=== PATIENT | male | born 1955 | race Caucasian/White ===

== ENCOUNTER 2020-05-06 07:02 | Emergency (ER) | payer BC, OTHER ==
--- OUTSIDE RECORDS SUMMARY | 2020-05-06 07:05 | XMS REPORT | Summary of Care ---
:1955 Author Organization [facility] Address [address] [place] [address] Care Team Providers Name Role Phone Siver Primary Care Provider Reason for Visit Reason Comments LAB WORK Encounter Details Date Type Department Care Team Description 02/11/2020 Bulk Loader Visit [facility] Abel Lui MD [address] [place] [address] Essential hypertension; Professional Office 2, [facility] Lab Diastolic dysfunction; Building Phlebotomy Abnormal EKG; Lab Aortic dilatation Professional Office Building [address] [facility] , [address] [place] [address] Allergies Active Allergy Reactions Severity Noted Date Comments Nsaids (Non-Steroidal Unknown - See comments 7 Anti-Inflammatory Drug) documented as of this encounter (statuses as of 02/11/2020) Medications Medication Sig Dispensed Refills Start Date End Date Status METOPROLOL SUCCINATE XL TAKE ONE TABLET 60 tablet 0 01/31/2020 Active 25 mg 24 hr BY MOUTH TWICE A tabletIndications: DAY Essential hypertension losartan 50 mg tablet Take 1 tablet by 30 tablet 0 02/07/2020 Active mouth 2 (two) times daily. documented as of this encounter (statuses as of 02/11/2020) Active Problems Problem Noted Date Type 2 diabetes mellitus without complication, without long-term current 08/02/2017 use of insulin Elevated LFTs 01/31/2017 Uncontrolled hypertension 01/30/2017 Ascending aortic aneurysm 01/30/2017 Abnormal EKG 01/30/2017 Morbid obesity with BMI of 40.0-44.9, adult 01/30/2017 Snoring 01/30/2017 documented as of this encounter (statuses as of 02/11/2020) Immunizations Name Administration Dates Next Due Td 10/16/2018 documented as of this encounter Social History Tobacco Use Types Packs/Day Years Used Date Former Smoker Cigarettes 1.5 Quit: 01/30/19 91 Smokeless Tobacco: Former User Snuff Alcohol Use Drinks/Week oz/Week Comments No Sex Assigned at Date Recorded Not on file COVID-19 Exposure Response Date Recorded In the last month, have you been in contact with No / Unsure 02/11/2020 9:55 AM SALES [employer]ISING [employer]IST someone who was confirmed or suspected to have Coronavirus / COVID-19? documented as of this encounter Last Filed Vital Signs Not on filedocumented in this encounter Nursing Notes Iris Maria - 02/11/2020 11:00 AM CST Venipuncture collection performed by clean technique on the left anticubitus. Total of 1 attempts were made. Slight pressure and a bandage/dressing were applied to the site(s). The patient experienced no complications. The following specimens were processed according to instructions and sent to [facility] laboratories per lab order on today: LT BLUE SST 1 RED LAV 1 PPT DK GREEN (LiHep) DK GREEN (SodH) ROBERTS DK BLUE (K2) DK BLUE (S) ACD Blood Culture NIPT/NTD S MERCHANDISING SPECIALIST documented in this encounter Plan of Treatment Date Type Specialty Care Team Description 02/11/2021 Office Visit Cardiology Abel Lui MD [address] [place] [phone] Health Maintenance Due Date Last Done Comments EYE EXAM 1966 URINE MICROALBUMIN 1966 FOOT EXAM 1974 DTaP,Tdap,and Td Vaccines (1 - 09/20/1975 10/16/2018 Tdap) COLON CANCER SCREENING ANNUAL 2006 FIT/FOBT COLON CANCER SCREENING FIT DNA 2006 EVERY 3 YEARS COLON CANCER SCREENING 2006 SIGMOIDOSCOPY EVERY 5 YEARS COLONOSCOPY 2006 Colorectal Cancer Screening 2006 Zoster Recombinant Vaccine 2006 (SHINGRIX) (1 of 2) HgA1C 02/01/2018 08/02/2017 CREATININE (SERUM) 08/02/2018 08/02/2017, 01/30/2017 LDL-C 08/02/2018 08/02/2017 INFLUENZA VACCINE (#1) 2019 Depression Screening 02/10/2021 02/11/2020 HEPATITIS C (HCV) SCREEN Completed 08/02/2017 PNEUMOCOCCAL 0-64 YEARS Aged Out No longe r eligible based COMBINED SERIES on patient's age to complete [facility] to [facility] documented as of this encounter Results Not on filedocumented in this encounter Visit Diagnoses Diagnosis Essential hypertension Unspecified essential hypertension Diastolic dysfunction Heart disease, unspecified Abnormal EKG Nonspecific abnormal electrocardiogram ( ECG) (EKG) Aortic dilatation Aortic ectasia, unspecified site documented in this encounter Insurance Payer Benefit Plan Subscriber ID Effective Dates Phone Address Type / Group [facility] [id number] 2016[address] [phone] [address] P[place] - OUT OF t 7 [id number] [place] [address] documented as of this encounter
--- OUTSIDE RECORDS SUMMARY | 2020-05-06 07:05 | XMS REPORT | Summary of Care ---
:1955 Author Organization [facility] Address [address] [place] [address] Care Team Providers Name Role Phone Siver Primary Care Provider Reason for Referral (Routine) Status Reason Specialty Diagnoses / Procedures Referred By Rex kovacs Referred To Contact Closed Cardiology Diagnoses Essential hypertension Diastolic dysfunction Abnormal EKG Aortic dilatation LuiAbel wright Procedures ECHO ROUTINE W/DOPPLER COLOR Preferred Location: [facility] MD Nimesh [address] [place] [address] Phone: Reason for Visit Reason Comments Follow-up Annual Ekg Done today in Office Encounter Details Date Type Department Care Team Description 02/11/2020 Office Visit [facility] Lui, Sendil Essential hyp ertension (Primary Dx); Cardiology- Vin Beavers MD Abnormal [facility] [address] Aortic dilatation; Drive, [address] Metabolic syndrome; [place], [place] Class 3 severe obesity with body mass index (BMI) of 40.0 to 44.9 in adult, unspecified obesity type, unspecified whether serious comorbidity present [id number] Allergies Active Allergy Reactions Severity Noted Date Comments Nsaids (Non-Steroidal Unknown - See comments 7 Anti-Inflammatory Drug) documented as of this encounter (statuses as of 02/12/2020) Medications Medication Sig Dispensed Refills Start Date End Date Status losartan 50 mg Take 1 180 tablet 3 02/12/2020 Act carol tabletIndications: tablet by 1 Essential mouth 2 hypertension, (two) times Abnormal EKG, daily for 90 Aortic dilatation days. metoprolol Take 1 180 tablet 3 02/12/2020 Active succinate XL 25 mg tablet by 1 24 hr mouth 2 tabletIndications: (two) times Essential daily for 90 hypertension, days. Abnormal EKG, Aortic dilatation losartan 50 mg Take 1 180 tablet 3 03/09/2018 Dis continued tablet tablet by 0 (Duplicate ) mouth 2 (two) times daily. METOPROLOL TAKE ONE 60 tablet 0 01/31/2020 Disconti nued SUCCINATE XL 25 mg TABLET BY 0 ( Reorder) 24 hr MOUTH TWICE tabletIndications: A DAY Essential hypertension losartan 50 mg Take 1 30 tablet 0 02/07/2020 Disc ontinued tablet tablet by 0 (Reorder) mouth 2 (two) times daily. 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 documented as of this encounter Last Filed Vital Signs Vital Sign Reading Time Taken Comments Blood Pressure 145/96 02/11/2020 10:20 AM PRE [employer] TEACH[employer] Pulse 67 02/11/2020 10:14 AM PRE [employer] TE[employer] Temperature - - Respiratory Rate 19 02/11/2020 10:14 AM PRE [employer]ER[employer] TEACHER Oxygen Saturation 94% 02/11/2020 10:14 AM PRE [employer]ERG[employer] TEACHER Inhaled Oxygen Concentration - - Weight 145.8 kg (321 lb 6.4 oz) 02/11/2020 10:14 AM PRE [employer]ER[employer] TEACH[employer] Height 182.9 cm (6') 02/11/2020 10:14 AM PRE [employer]ER[employer] TEACHER Body Mass Index 43.59 02/11/2020 10:14 AM PRE [employer]ERG[employer] TEACHER documented in this encounter Progress Notes Abel Lui MD - 02/11/2020 10:00 AM CST [facility] Cardiology Consult Note Patient: Zane Garcia Date of : 1955 CHIEF COMPLAINT: Chief Complaint Patient presents with Follow-up Annual Ekg Done today in Office History of Present Illness: Zane Garcia is a 62 year old male Presented to the office to Follow-up care for the Essential hypertension/abnormal EKG. History from patient himself. Since the last office visit, No new cardiac complaints noted. Concerned coming to due to his currently undergoing chemo. Not active since the COVID. ALLEN NYHA class II stable. Feeling well on the whole. No new cardiac symptoms noted. No chest pain at rest. No PND or orthopnea. No pedal edema. No exertional palpitations or palpitations at rest. No syncopal attacks. Prior cardiac history:- History dates back to a few years ago when he was started to notice elevated blood pressure. He was investigated. He states that he underwent 2 coronary angiogram in the last angiogram was done in around in early part of . He was told he has not obstructive CAD. He was also since then had a stress test which was reported to be normal. Recently in 2014 underwent last CAT scan which shows aortic aneurysm of 3.8 cm. Prior to that in 2010 he was told that he had around 4.2 cm aneurysm. Since moving to [place] he has been off medications. He last few days he has been noticing that he is having dyspnea on exertion NYHA class II and rechecked his blood pressure has been consistently elevated. He has gained at least 15-20 pounds since the move from [place]. Previous Cardiac Studies: IMAGING - I personally reviewed, pertinent results as below: EKG was reviewed as well as a sinus rhythm with left axis deviation. Nonspecific ST-T changes noted. Echo shows evidence of hypertensive heart disease CT chest shows presence of pulmonary nodules along with mild aortic root enlargement less than 4 Centimeters ECG 02/11/2020 SR with narrow QRS complex. T wave inversion in lateral leads similar to prior ECG 02/2019 PAST MEDICAL HISTORY Past Medical History: Diagnosis Date Abnormal EKG pt reports abnormal t wave. Ascending aortic aneurysm Hypertension Palpitations Tinnitus Type 2 diabetes mellitus without complication, without long-term current use of insulin 08/02/2017 Past Surgical History: Procedure Laterality Date FRACTURE SURGERY R clavicle fx LEFT HEART CATH Family History Problem Relation Age of Onset Afib (atrial fibrillation) Mother Cancer Father Hypertension Father Stroke Father SOCIAL HISTORY Social History Socioeconomic History Marital status: Spouse name: Not on file Number of children: Not on file Years of education: Not on file Highest education level: Not on file Occupational History Not on file Social Needs Financial resource strain: Not on file Food insecurity Worry: Not on file Inability: Not on file Transportation needs Medical: Not on file Non-medical: Not on file Tobacco Use Smoking status: Former Smoker Packs/day: 1.50 Types: Cigarettes Quit date: 01/30/1991 Years since quittin.0 Smokeless tobacco: Former User Types: Snuff Substance and Sexual Activity Alcohol use: No Drug use: No Sexual activity: Not on file Lifestyle Physical activity Days per week: Not on file Minutes per session: Not on file Stress: Not on file Relationships Social connections Talks on phone: Not on file Gets together: Not on file Attends bahai service: Not on file Active member of club or organization: Not on file Attends meetings of clubs or organizations: Not on file Relationship status: Not on file Intimate partner violence Fear of current or ex partner: Not on file Emotionally abused: Not on file Physically abused: Not on file Forced sexual activity: Not on file Other Topics Concern Not on file Social History Narrative Lives at home with and 2 daughters ALLERGIES Allergies Allergen Reactions Nsaids (Non-Steroidal Anti-Inflammatory Drug) Unknown - See comments MEDICATIONS Patient's Medications START taking these medications No medications on file CONTINUE taking these medications which have NOT CHANGED LOSARTAN 50 MG TABLET Take 1 tablet by mouth 2 (two) times daily. METOPROLOL SUCCINATE XL 25 MG 24 HR TABLET TAKE ONE TABLET BY MOUTH TWICE A DAY START taking Modified Medications as Prescribed No medications on file STOP taking these medications LOSARTAN 50 MG TABLET Take 1 tablet by mouth 2 (two) times daily. There are no exam notes on file for this visit. I have reviewed the nursing notes obtained by my nurse and concur as detailed above. REVIEW OF SYSTEMS: Comprehensive 10-system review was conducted and were negative except for what's noted in the HPI. The following systems were reviewed: Constitutional, cardiovascular, respiratory, gastrointestinal, genitourinary, musculoskeletal, neurologic, psychiatric, endocrinological, and hematological. PHYSICAL EXAMINATION: Vitals: 02/11/20 1014 02/11/20 1020 BP: (!) 145/90 (!) 145/96 BP Location: Left arm Patient Position: Sitting BP CUFF SIZE: Adult Large Pulse: 67 Resp: 19 SpO2: 94% Weight: 321 lb 6.4 oz (145.8 kg) Height: 6' (1.829 m) General: no apparent distress HEENT: normocephalic atraumatic Neck: supple, no lymphadenopathy, no bruits, no JVD Lungs: clear to auscultation bilaterally. No wheezes or rhonchi. No increased work of breathing. Cardio: Regular rate and rhythm, S1&S2 normal, no murmurs, rubs or gallops Abdomen: soft; non-tender; non-distended; normoactive bowel sounds. : not examined Rectal: not examined Extremities: no clubbing, cyanosis, or edema. Skin: no rashes, no visible lesions. Neuro: no gross focal deficits LABS - Reviewed pertinent labs as below: CBC BMP PT/INR WBC (10*3/L) Date Value 08/02/2017 7.61 NA (mmol/L) Date Value 08/02/2017 141 No results found for: PT PLT (10*3/L) Date Value 08/02/2017 207 K (mmol/L) Date Value 08/02/2017 4.5 No results found for: PTINR HGB (g/dL) Date Value 08/02/2017 14.4 BUN (mg/dL) Date Value 08/02/2017 13 HCT (%) Date Value 08/02/2017 43.8 CREATININE (mg/dL) Date Value 08/02/2017 0.80 LIPID PROFILE GLUCOSE (mg/dL) Date Value 08/02/2017 128 (H) CHOL (mg/dL) Date Value 08/02/2017 157 TSH LDL CHOL (mg/dL) Date Value 08/02/2017 69 TSH (mIU/L) Date Value 08/02/2017 1.65 CARDIAC ENZYMES HDL (mg/dL) Date Value 08/02/2017 37 (L) No results found for: CK TRIG (mg/dL) Date Value 08/02/2017 256 (H) LFTs No results found for: CKMB AST(SGOT) (U/L) Date Value 08/02/2017 32 No results found for: TROPNI ALT(SGPT) (U/L) Date Value 08/02/2017 57 (H) No results found for: BNP LDL CHOL (mg/dL) Date Value 08/02/2017 69 There are no current results on file for these tests and/or test for 1 year. There are no current results on file for these tests and/or test for 1 year. ASSESSMENT/PLAN 1. Essential hypertension ECHO ROUTINE W/DOPPLER COLOR Preferred Location: [facility] EKG-12 LEAD ROUTINE COMP. METABOLIC PANEL (73107) LIPID PANEL (58095)(TOTAL CHOLESTEROL, TRIGLYCERIDES, HDL) N-TERMINAL PRO-BNP GLYCOSYLATED HEMOGLOBIN (A1C) losartan 50 mg tablet metoprolol succinate XL 25 mg 24 hr tablet 2. Abnormal EKG ECHO ROUTINE W/DOPPLER COLOR Preferred Location: [facility] EKG-12 LEAD ROUTINE COMP. METABOLIC PANEL (70920) LIPID PANEL (12744)(TOTAL CHOLESTEROL, TRIGLYCERIDES, HDL) N-TERMINAL PRO-BNP GLYCOSYLATED HEMOGLOBIN (A1C) losartan 50 mg tablet metoprolol succinate XL 25 mg 24 hr tablet 3. Aortic dilatation ECHO ROUTINE W/DOPPLER COLOR Preferred Location: [facility] EKG-12 LEAD ROUTINE COMP. METABOLIC PANEL (52435) LIPID PANEL (28877)(TOTAL CHOLESTEROL, TRIGLYCERIDES, HDL) N-TERMINAL PRO-BNP GLYCOSYLATED HEMOGLOBIN (A1C) losartan 50 mg tablet metoprolol succinate XL 25 mg 24 hr tablet 4. Metabolic syndrome 5. Class 3 severe obesity with body mass index (BMI) of 40.0 to 44.9 in adult, unspecified obesity type, unspecified whether serious comorbidity present Clinically stable from cardiac stand point. No new cardiac complaints elicited. Recommend to exercise and if any exerterional symptoms of chest pain or ALLEN noted, then adviced to call us. HTN: Elevated in the office but reports wasn't taking meds since he ran out until recently. On Toprol XL 25 mg BiD and Losartan 50 mg BiD. Labs today since no labs in 2 yrs. ECG done today was reviewed with him. Copy given. Echo prior to next OV. Home BP log recommended. Cross check his BP machine. Appropriate ways to check home BP discussed. Goals BP < 130/80 stressed. Explained if BP > 130/80, adviced to send us the log. Lifestyle modifications stressed. Aortic root dilatation: Reviewed CT chest report from MD Tavares. No mention of dilatation. Echo prior to next OV. Elevated A1c: Labs today. Explained if still elevated, then will need to see PCP Eun Fierro for further assessment and management. Dyslipidemia: Recommended LDL << 70 (mild calcification noted in CT). Obese: Recommended lifestyle modification/risk factor modification/weight reduction diet/adequate exercises. Body mass index is 43.59 kg/m. Follow up in 12 months. Scripts sent. Recommended goal BP < 130/80 consistently, LDL << 70 (mild calcification noted in CT), HbA1c < 6.5. Orders Placed This Encounter Procedures COMP. METABOLIC PANEL (55959) LIPID PANEL (06256)(TOTAL CHOLESTEROL, TRIGLYCERIDES, HDL) N-TERMINAL PRO-BNP GLYCOSYLATED HEMOGLOBIN (A1C) ECHO ROUTINE W/DOPPLER COLOR Preferred Location: [facility] Requested Prescriptions Signed Prescriptions Disp Refills losartan 50 mg tablet 180 tablet 3 Sig: Take 1 tablet by mouth 2 (two) times daily for 90 days. metoprolol succinate XL 25 mg 24 hr tablet 180 tablet 3 Sig: Take 1 tablet by mouth 2 (two) times daily for 90 days. Patient's diease process and its evaluation and treatment were discussed. We discussed each of for cardio vascular-related problems and discussed long-term goals and expectations for the each problem.I reviewed each of the cardiac medications in detail. Reviewed the medication with patient in detail recommended to continue taking the current medications without further changes other than changes mentioned above. Recommended, explained and stressed the importance of healthy eating habits and exercises and lifestyle modifications Follow up as planned is predicated on symptoms stability and/or acceptable test results. Patient is urged to call in sooner should problems arise or if there is no improvement in cardiac symptoms. ER warning signs and symptoms explained and patient verbalized understanding. My diagnostic impression and treatment plans were discussed at length with the patient. All side effects as well as drug-drug interactions and risks discussed at length. Ample opportunity was offered and encouraged to ask questions during this visit and patient appreciated the answers given by me andverbzalised statisfcation in the answers given. We reviewed the [place] [employer] recommendations for reduction of overall cardio vascular risk. The importance of monitoring the blood pressure carefully both at home on regular basis along with other physicians appointment was stressed in detail. In addition we discussed target LDL levels for optimal risk reduction. It was advised that to daily physical activity be performed with 30 minutes of sustained exercise for both cardio vascular fitness and improvement for generalized medical health and well-being. Thank you for allowing us to participate in the care of Zane Garcia. If you have any questions or concerns please feel free to call our office at [phone]. I would be happy to be of further assistance for Zane Garcia wellbeing. David Lui MD Home Extension Agent, Division of Cardiology [facility] [employer]GARTEN TEACHER documented in this encounter Plan of Treatment Date Type Specialty Care Team Description 02/11/2021 Office Visit Cardiology Abel Lui MD [address] [place] [address] [phone] Name Type Priority Associated Diagnoses Order S chedule EKG-12 LEAD ROUTINE HEART STATION Routine Essential 1 Occur rences starting hypertension 02/11/2020 until Abnormal EKG 02/11/2021 Aortic dilatation Health Maintenance Due Date Last Done Comments EYE EXAM 1966 URINE MICROALBUMIN 1966 FOOT EXAM 1974 DTaP,Tdap,and Td Vaccines (1 - 09/20/1975 10/16/2018 Tdap) COLON CANCER SCREENING ANNUAL 2006 FIT/FOBT COLON CANCER SCREENING FIT DNA 2006 EVERY 3 YEARS COLON CANCER SCREENING 2006 SIGMOIDOSCOPY EVERY 5 YEARS COLONOSCOPY 2006 Colorectal Cancer Screening 2006 Zoster Recombinant Vaccine 2006 (SHINGRIX) (1 of 2) INFLUENZA VACCINE (#1) 2019 HgA1C 08/10/2020 02/11/2020, 08/02/2017 CREATININE (SERUM) 02/10/2021 02/11/2020, 08/02/2017, 01/30/2017 Depression Screening 02/10/2021 02/11/2020 LDL-C 02/10/2021 02/11/2020, 08/02/2017 HEPATITIS C (HCV) SCREEN Completed 08/02/2017 PNEUMOCOCCAL 0-64 YEARS Aged Out No longe r eligible based COMBINED SERIES on patient's age to complete this to pic documented as of this encounter Results N-TERMINAL PRO-BNP (02/11/2020 11:43 AM PRE [employer]ERGART[employer] TEACHER) Pathologist Sig nature NT-proBNP 59 <=125 pg/mL [facility] Specimen Blood Narrative Performed At Biotin has been reported to cause a negative [facility] bias, interpret results relative to patient's use of biotin. Performing Organization Address City/[facility] Phone Number [facility] CLIA: [id number] [place] [address] LABORATORY [address] [facility] LIPID PANEL (38588)(TOTAL CHOLESTEROL, TRIGLYCERIDES, HDL) (02/11/2020 11:43 AM PRE KINDERGARTEN TEACHER) Pathologist Sig nature CHOL 166 120 - 200 mg/dL [facility] HDL 32 (L) >40 mg/dL [facility] HDLC RATIO 5.2 (H) <=5.0 [facility] TRIG 174 (H) 30 - 170 mg/dL [facility] LDL CHOL 99 <=160 mg/dL [facility] VLDL 35 5 - 60 mg/dL [facility] Specimen Blood Performing Organization Address City/[facility] Phone Number [facility] CLIA: [id number] [place] [address] [address] COMP. METABOLIC PANEL (74891) (02/11/2020 11:43 AM PRE KINDERGARTEN TEACHER) Pathologist Sig nature NA 136 135 - 145 [facility] mmol/L HOSPITAL LABORATORY K 4.5 3.5 - 5.0 [facility] mmol/L HOSPITAL LAB[facility]ATORY CL 102 98 - 108 mmol/L [facility] CO2 TOTAL 28 23 - 31 mmol/L [facility] AGAP 6 2 - 16 [facility] BUN 15 7 - 23 mg/dL [facility] GLUCOSE 130 (H) 70 - 110 mg/dL [facility] CREATININE 0.84 0.60 - 1.25 [facility] mg/dL [facility] TOTAL BILI 0.7 0.1 - 1.1 mg/dL [facility] CALCIUM 9.4 8.6 - 10.6 [facility] mg/dL [facility] T PROTEIN 6.5 6.3 - 8.2 g/dL [facility] ALBUMIN 4.1 3.5 - 5.0 g/dL [facility] ALK PHOS 83 34 - 122 U/L [facility] ALTv 47 5 - 50 U/L [facility] AST(SGOT) 44 (H) 13 - 40 U/L [facility] eGFR Calculation 92.3 mL/min/1.73m2 [facility] (Non-[facility] LABORATORY Japanese) eGFR Calculation 111.9 mL/min/1.73m2 [facility] () [facility] Specimen Blood Narrative Performed At Association of Glomerular Filtration Rate (GFR) [facility] and Staging of Kidney Disease* + + +- + | GFR (mL/min/1.73 m2) | With Kidney Damage | Without Kidney Damage + + +- + | >90 | Stage one | Normal + + +- + | 60-89 | Stage two | Decreased GFR + + +- + | 30-59 | Stage three | Stage three + + +- + | 15-29 | Stage four | Stage four + + +- + | <15 (or dialysis) | Stage five | Stage five + + +- + *Each stage assumes the associated GFR level has been in effect for at least three months. Stages 1 to 5, with or without kidney disease, indicate chronic kidney disease. Notes: Determination of stages one and two (with eGFR >59mL/min/1.73 m2) requires estimation of kidney damage for at least three months as defined by structural or functional abnormalities of the kidney, manifested by either: Pathological abnormalities or Markers of kidney damage (including abnormalities in the composition of the blood or urine or abnormalities in imaging tests). Performing Organization Address City/State/Zipcode Phone Number [facility] CLIA: [id number] [place] [address] GLYCOSYLATED HEMOGLOBIN (A1C) (02/11/2020 11:00 AM PRE KINDERGARTEN TEACHER) Pathologist Sig nature HGB A1C 6.9 (H) 4.0 - 6.0 % [facility] Specimen Blood Narrative Performed At %A1C (NGSP) Interpretation (ADA) [facility] 4.8-5.6 Normal or (Non-Diabetic Ra nge) 5.7-6.4 Increased Risk (Pre-Diabet ic) >6.5 Diabetes Indicated Performing Organization Address City/State/Zipcode Phone Number [facility] CLIA: [id number] [place] [address] documented in this encounter Visit Diagnoses Diagnosis Essential hypertension - Primary Unspecified essential hypertension Abnormal EKG Nonspecific abnormal electrocardiogram ( ECG) (EKG) Aortic dilatation Aortic ectasia, unspecified site Metabolic syndrome Dysmetabolic Syndrome X Class 3 severe obesity with body mass in dex (BMI) of 40.0 to 44.9 in adult, unspecified obesity type, unspecified wh ether serious comorbidity present documented in this encounter Insurance Payer Benefit Plan Subscriber ID Effective Dates Phone Address Type / Group BCBS OF [facility] [id number] 2016-[place]if[place] [phone] [address] PPO/POS [place] - OUT OF t 7 [id number] [place] [address] documented as of this encounter"
--- OUTSIDE RECORDS SUMMARY | 2020-05-06 07:05 | XMS REPORT | Summary of Care ---
:[address] [facility] Address [address] [place] [address] Care Team Providers Name Role Phone Unavailable Primary Care Provider Unavailable Reason for Visit Reason Comments Refill Request Encounter Details Date Type Department Care Team Description 02/06/2020 Refill [facility] Cardiology- Abel Lui MD Refill Request [place] [address] [facility] [address] [place] [address] [place] [address] [phone] Allergies Active Allergy Reactions Severity Noted Date Comments Nsaids (Non-Steroidal Unknown - See comments 7 Anti-Inflammatory Drug) documented as of this encounter (statuses as of 02/06/2020) Medications Medication Sig Dispensed Refills Start Date End Date Status losartan 50 mg tablet Take 1 tablet by 180 tablet 3 03/09/2018 Active mouth 2 (two) times daily. LOSARTAN 50 mg tablet TAKE ONE TABLET 30 tablet 0 12/13/2019 Active BY MOUTH TWICE A DAY METOPROLOL SUCCINATE XL TAKE ONE TABLET 60 tablet 0 01/31/2020 Active 25 mg 24 hr BY MOUTH TWICE A tabletIndications: DAY Essential hypertension documented as of this encounter (statuses as of 02/06/2020) Active Problems Problem Noted Date Type 2 diabetes mellitus without complication, without long-term current 08/02/2017 use of insulin Elevated LFTs 01/31/2017 Uncontrolled hypertension 01/30/2017 Ascending aortic aneurysm 01/30/2017 Abnormal EKG 01/30/2017 Morbid obesity with BMI of 40.0-44.9, adult 01/30/2017 Snoring 01/30/2017 documented as of this encounter (statuses as of 02/06/2020) Immunizations Name Administration Dates Next Due Td 10/16/2018 documented as of this encounter Social History Tobacco Use Types Packs/Day Years Used Date Former Smoker Cigarettes 1.5 Quit: 01/30/19 91 Smokeless Tobacco: Former User Snuff Alcohol Use Drinks/Week oz/Week Comments No Sex Assigned at Date Recorded Not on file documented as of this encounter Last Filed Vital Signs Not on filedocumented in this encounter Miscellaneous Notes Telephone Encounter - Juanita Ellis RN - 02/06/2020 4:25 PM CDTPatient needs appointment and labs for refills. documented in this encounter Plan of Treatment Health Maintenance Due Date Last Done Comments EYE EXAM 1966 URINE MICROALBUMIN 1966 Depression Screening 1968 FOOT EXAM 1974 DTaP,Tdap,and Td Vaccines (1 - 09/20/1975 10/16/2018 Tdap) COLON CANCER SCREENING ANNUAL 2006 FIT/FOBT COLON CANCER SCREENING FIT DNA 2006 EVERY 3 YEARS COLON CANCER SCREENING 2006 SIGMOIDOSCOPY EVERY 5 YEARS COLONOSCOPY 2006 Colorectal Cancer Screening 2006 Zoster Recombinant Vaccine 2006 (SHINGRIX) (1 of 2) HgA1C 02/01/2018 08/02/2017 CREATININE (SERUM) 08/02/2018 08/02/2017, 01/30/2017 LDL-C 08/02/2018 08/02/2017 INFLUENZA VACCINE (#1) 2019 HEPATITIS C (HCV) SCREEN Completed 08/02/2017 PNEUMOCOCCAL 0-64 YEARS Aged Out No longe r eligible based COMBINED SERIES on patient's age to complete this to pic documented as of this encounter Results Not on filedocumented in this encounter Insurance Payer Benefit Plan Subscriber ID Effective Dates Phone Address Type / Group BCBS OF [facility] [id number] 2016-Bonifacio [phone] [address] PPO/POS [place] - OUT OF t 7 [id number] [place] [address] documented as of this encounter
--- OUTSIDE RECORDS SUMMARY | 2020-05-06 07:05 | XMS REPORT | Continuity of Care Document ---
:1955 Author Organization [facility] t Address [address] [place] [address] [place]. [address] [place] [address] Care Team Providers Name Role Phone Jovan HOPKINS Attending Clinician Hu HOPKINS, K.H. Attending Clinician Problems This patient has no known problems. Allergies, Adverse Reactions, Alerts This patient has no known allergies or adverse reactions. Medications This patient has no known medications. Procedures This patient has no known procedures. Encounters Start End Encounter Admission Attending Care Care Encounter Source Date/Time Date/Time Type Type Clinicians Facility Department ID 2020-02-18 2020-02-18 Refill Jovan SCLIDIA [id number] 00:00:00 00:00:00 Nini Banuelos [id number] [place] [id number] Professbernabe [id number] nal 059 Building 2020-02-11 2020-02-11 Office SPENCER Lui [id number] 10:05:58 10:39:19 Visit Abel Banuelos [id number] [place] [id number] [facility] [id number] [facility] Results This patient has no known results.
--- OUTSIDE RECORDS SUMMARY | 2020-05-06 07:05 | XMS REPORT | Summary of Care ---
:1955 Author Organization [facility] Address [address] [place] [address] Care Team Providers Name Role Phone Unavailable Primary Care Provider Unavailable Reason for Visit Reason Comments Refill Request Encounter Details Date Type Department Care Team Description 02/07/2020 Telephone [facility] Cardiology- Ana Maria Aldana MD Refill Request [place] 146 [facility] 146 [facility], [address] [place] [address] [place] [address] [phone] Allergies Active Allergy Reactions Severity Noted Date Comments Nsaids (Non-Steroidal Unknown - See comments 7 Anti-Inflammatory Drug) documented as of this encounter (statuses as of 02/07/2020) Medications Medication Sig Dispensed Refills Start Date End Date Status losartan 50 mg Take 1 tablet 180 tablet 3 03/09/2018 Active tablet by mouth 2 (two) times daily. METOPROLOL TAKE ONE 60 tablet 0 01/31/2020 Active SUCCINATE XL 25 mg TABLET BY 24 hr MOUTH TWICE A tabletIndications: DAY Essential hypertension losartan 50 mg Take 1 tablet 30 tablet 0 02/07/2020 Active tablet by mouth 2 (two) times daily. LOSARTAN 50 mg TAKE ONE 30 tablet 0 12/13/2019 02/07/2020 Dis continued tablet TABLET BY MOUTH TWICE A DAY documented as of this encounter (statuses as of 02/07/2020) Active Problems Problem Noted Date Type 2 diabetes mellitus without complication, without long-term current 08/02/2017 use of insulin Elevated LFTs 01/31/2017 Uncontrolled hypertension 01/30/2017 Ascending aortic aneurysm 01/30/2017 Abnormal EKG 01/30/2017 Morbid obesity with BMI of 40.0-44.9, adult 01/30/2017 Snoring 01/30/2017 documented as of this encounter (statuses as of 02/07/2020) Immunizations Name Administration Dates Next Due Td [...] this encounter Miscellaneous Notes Telephone Encounter - Sophia Bullock RN - 02/07/2020 4:03 PM CDTPatient has appointment on 02.11.20. Needs losartan until then. Sent 15 day supply in. documented in this encounter Plan of Treatment Date Type Specialty Care Team Description 02/11/2020 Office Visit Cardiology Abel Lui MD [address] [place] [address] [phone] Health Maintenance Due Date Last Done [...] Phone Address Type / Group BCBS OF [employer] [place] [id number] 2016-[place]ifacio [phone] [address] PPO/POS [place] - OUT OF t 7 [id number] [place] [address] documented as of this encounter
--- OUTSIDE RECORDS SUMMARY | 2020-05-06 07:05 | XMS REPORT | Summary of Care ---
:1955 Author Organization [facility] - Health Address [address] [place] [address] Care Team Providers Name Role Phone Siver Primary Care Provider Encounter Details Date Type Department Care Team Description 02/11/2020 Orders Only [facility] Doctor Unassigned, No [address] [facility] Name [place] [id number] [address] [place] [phone] Allergies Active Allergy Reactions Severity Noted Date Comments Nsaids (Non-Steroidal Unknown - See comments 7 Anti-Inflammatory Drug) documented as of this encounter (statuses as of 02/11/2020) Medications Medication Sig Dispensed Refills Start Date End Date Status losartan 50 mg tablet Take 1 tablet by 180 tablet 3 03/09/2018 Active mouth 2 (two) times daily. METOPROLOL SUCCINATE XL TAKE ONE TABLET 60 [...] with No / Unsure 02/11/2020 9:55 AM STUDENT SUPPORT COUNSELOR someone who was confirmed or suspected to have Coronavirus / COVID-19? documented as of this encounter Last Filed Vital Signs Not on filedocumented in this encounter Plan of Treatment Health [...] on patient's age to complete this to [facility] documented as of this encounter Procedures Procedure Name Priority Date/Time Associated Diagnosis Comme nts ASSIGNMENT OF BENEFITS Routine 02/11/2020 10:05 AM STUDENT SUPPORT COUNSELOR CONSENT/REFUSAL FOR Routine 02/11/2020 10:04 AM DIAGNOSIS AND TREATMENT STUDENT SUPPORT COUNSELOR documented in this encounter Results Not on filedocumented in this encounter Insurance Payer Benefit Plan Subscriber ID Effective Dates Phone Address Type / Group BCBS OF [facility] [id number] 2016-[place]ifacio [phone] [address] PPO/POS [place] - OUT OF t 7 [id number] [place] [address] documented as of this encounter
--- OUTSIDE RECORDS SUMMARY | 2020-05-06 07:06 | XMS REPORT | Summary of Care ---
:1955 Author Organization [facility] Address [address] [place] [address] Care Team Providers Name Role Phone Siver Primary Care Provider Reason for Visit Reason Comments Refill Request Encounter Details Date Type Department Care Team Description 02/18/2020 Refill [facility] Cardiology- Ana Maria Aldana MD Refill Request [address] 146 [facility], [address] [place] [address] [place] [address] [phone] Allergies Active Allergy Reactions Severity Noted Date Comments Nsaids (Non-Steroidal Unknown - See comments 7 Anti-Inflammatory Drug) documented as of this encounter (statuses as of 02/18/2020) Medications Medication Sig Dispensed Refills Start Date End Date Status metoprolol Take 1 180 tablet 3 02/12/2020 05/12/2020 Active succinate XL 25 tablet by mg 24 hr mouth 2 tabletIndication (two) times s: Essential daily for 90 hypertension, days. Abnormal EKG, Aortic dilatation losartan 50 mg Take 1 180 tablet 3 02/18/2020 Act carol tabletIndication tablet by s: Essential mouth 2 hypertension, (two) times Abnormal EKG, daily. Aortic dilatation losartan 50 mg Take 1 180 tablet 3 02/12/2020 02/18/2020 Di scontinued tabletIndication tablet by (Re order) s: Essential mouth 2 hypertension, (two) times Abnormal EKG, daily for 90 Aortic days. dilatation documented as of this encounter (statuses as of 02/18/2020) Active Problems Problem Noted Date Type 2 diabetes mellitus without complication, without long-term current 08/02/2017 use of insulin Elevated LFTs 01/31/2017 Uncontrolled hypertension 01/30/2017 Ascending aortic aneurysm 01/30/2017 Abnormal EKG 01/30/2017 Morbid obesity with BMI of 40.0-44.9, adult 01/30/2017 Snoring 01/30/2017 documented as of this encounter (statuses as of 02/18/2020) Immunizations Name Administration Dates Next Due Td [...] with No / Unsure 02/11/2020 9:55 AM DATABASE MANAGEMENT SPECIALIST someone who was confirmed or suspected to have Coronavirus / COVID-19? documented as of this encounter Last Filed Vital Signs Not on filedocumented in this encounter Plan of Treatment Date Type Specialty Care Team Description 02/11/2021 Office Visit Cardiology Abel Lui MD [address] [place] [phone] Health Maintenance Due Date Last Done [...] on patient's age [facility] documented as of this encounter Results Not on filedocumented in this encounter Visit Diagnoses Diagnosis Essential hypertension Unspecified essential hypertension Abnormal EKG Nonspecific abnormal electrocardiogram ( ECG) (EKG) Aortic dilatation Aortic ectasia, unspecified site documented in this encounter Insurance Payer Benefit Plan Subscriber ID Effective Dates Phone Address Type / Group BCBS OF [facility] [id number] 2016-Bonifacio [phone] [address] PPO/POS [place] - OUT OF t 7 [id number] [place] [address] documented as of this encounter
--- OUTSIDE RECORDS SUMMARY | 2020-05-06 07:06 | XMS REPORT | Summary of Care ---
:1955 Author Organization [facility] Address [address] [place] [address] Care Team Providers Name Role Phone Siver Primary Care Provider Reason for Referral (Routine) Status Reason Specialty Diagnoses / Procedures Referred By Rex kovacs Referred To Contact Closed Cardiology Diagnoses Essential hypertension Diastolic dysfunction Abnormal EKG Aortic dilatation LuiAbel wright Procedures ECHO ROUTINE W/DOPPLER COLOR Preferred Location: [facility] MD Nimesh [address] [place] [address] Phone: Reason for Visit Reason Comments Follow-up Annual Ekg Done today in Office Encounter Details Date Type Department Care Team Description 02/11/2020 Office Visit [facility] Lui, Sendil Essential hyp ertension (Primary Dx); Cardiology- Vin Beavers MD Abnormal E[facility]; [facility] Aortic dilatation; Drive, [address] Metabolic syndrome; [place], [place] Class 3 severe obesity with body [...] with No / Unsure 02/11/2020 9:55 AM SLAB LIFTING ENGINEER someone who was confirmed or suspected to have Coronavirus / COVID-19? documented as of this encounter Last Filed Vital Signs Vital Sign Reading Time Taken Comments Blood Pressure 145/96 02/11/2020 10:20 AM SLAB LIFTING ENGINEER Pulse 67 02/11/2020 10:14 AM SLAB LIFTING ENGINEER Temperature - - Respiratory Rate 19 02/11/2020 10:14 AM SLAB LIFTING ENGINEER Oxygen Saturation 94% 02/11/2020 10:14 AM SLAB LIFTING ENGINEER Inhaled Oxygen Concentration - - Weight 145.8 kg (321 lb 6.4 oz) 02/11/2020 10:14 AM SLAB LIFTING ENGINEER Height 182.9 cm (6') 02/11/2020 10:14 AM SLAB LIFTING ENGINEER Body Mass Index 43.59 02/11/2020 10:14 AM SLAB LIFTING ENGINEER documented in this encounter Progress Notes Abel Lui MD - 02/11/2020 10:00 AM CST [facility] Cardiology Consult Note Patient: Zane Garcia Date [...] around 4.2 cm aneurysm. Since moving to [place] he has been off medications. He last few days he has been noticing that he is having dyspnea on exertion NYHA class II and rechecked his blood pressure has been consistently elevated. He has gained at least 15-20 pounds since the move from [place]. Previous Cardiac Studies: IMAGING - I personally [...] file Gets together: Not on file Attends judaism service: Not on file Active member of [...] hypertension ECHO ROUTINE W/DOPPLER COLOR Preferred Location: [facility] EKG-12 LEAD ROUTINE COMP. METABOLIC PANEL (69642) LIPID PANEL (86225)(TOTAL CHOLESTEROL, TRIGLYCERIDES, HDL) N-TERMINAL PRO-BNP GLYCOSYLATED HEMOGLOBIN (A1C) losartan 50 mg tablet metoprolol succinate XL 25 mg 24 hr tablet 2. Abnormal EKG ECHO ROUTINE W/DOPPLER COLOR Preferred Location: [facility] EKG-12 LEAD ROUTINE COMP. METABOLIC PANEL (90584) LIPID PANEL (31084)(TOTAL CHOLESTEROL, TRIGLYCERIDES, HDL) N-TERMINAL PRO-BNP GLYCOSYLATED HEMOGLOBIN (A1C) losartan 50 mg tablet metoprolol succinate XL 25 mg 24 hr tablet 3. Aortic dilatation ECHO ROUTINE W/DOPPLER COLOR Preferred Location: [facility] EKG-12 LEAD ROUTINE COMP. METABOLIC PANEL (49472) LIPID PANEL (42505)(TOTAL CHOLESTEROL, TRIGLYCERIDES, HDL) N-TERMINAL PRO-BNP GLYCOSYLATED HEMOGLOBIN [...] Placed This Encounter Procedures COMP. METABOLIC PANEL (19281) LIPID PANEL (09050)(TOTAL CHOLESTEROL, TRIGLYCERIDES, HDL) N-TERMINAL PRO-BNP GLYCOSYLATED HEMOGLOBIN (A1C) ECHO ROUTINE W/DOPPLER COLOR Preferred Location: [facility] Requested Prescriptions Signed Prescriptions Disp Refills [...] in the answers given. We reviewed the [place] [employer] recommendations for reduction of overall [...] feel free to call our office at [phone]. I would be happy to be of further assistance for Zane Garcia wellbeing. David Lui MD [employer]icker [employer], Division of Cardiology [facility] LIFTING ENGINEER documented in this encounter Plan of Treatment Date Type Specialty Care Team Description 02/11/2021 Office Visit Cardiology Abel Lui MD [address] [place] [address] [place] [address] [phone] Name Type Priority Associated Diagnoses Order [...] encounter Results N-TERMINAL PRO-BNP (02/11/2020 11:43 AM SLAB LIFTING ENGINEER) Pathologist Sig nature NT-proBNP 59 <=125 pg/mL [facility] Specimen Blood Narrative Performed At Biotin has been reported to cause a negative [facility] bias, interpret results relative to patient's use of biotin. Performing Organization Address City/[facility] Phone Number [facility] CLIA: [id number] [place] [address] LABORATORY 132 [facility] LIPID PANEL (37294)(TOTAL CHOLESTEROL, TRIGLYCERIDES, HDL) (02/11/2020 11:43 AM SLAB LIFTING ENGINEER) Pathologist Sig nature CHOL 166 120 - 200 mg/dL [facility] HDL 32 (L) >40 mg/dL [facility] HDLC RATIO 5.2 (H) <=5.0 [facility] TRIG 174 (H) 30 - 170 mg/dL [facility] LDL CHOL 99 <=160 mg/dL [facility] VLDL 35 5 - 60 mg/dL [facility] Specimen Blood Performing Organization Address City/[facility] Phone Number [facility] CLIA: [id number] [place] [address] LABORATORY [address] COMP. METABOLIC PANEL (37902) (02/11/2020 11:43 AM SLAB LIFTING ENGINEER) Pathologist Sig nature NA 136 135 - 145 [facility] mmol/L HOSPITAL LABORATORY K 4.5 3.5 - 5.0 [facility] mmol/L HOSPITAL LABORATORY CL 102 98 - 108 mmol/L [facility] CO2 TOTAL 28 23 - 31 mmol/L [facility] AGAP 6 2 - 16 [facility] BUN 15 7 - 23 mg/dL [facility] GLUCOSE 130 (H) 70 - 110 mg/dL [facility] CREATININE 0.84 0.60 - 1.25 [facility] mg/dL [facility] TOTAL BILI 0.7 0.1 - 1.1 mg/dL [facility] CALCIUM 9.4 8.6 - 10.6 [facility] mg/dL [facility] T PROTEIN 6.5 6.3 - 8.2 g/dL [facility] ALBUMIN 4.1 3.5 - 5.0 g/dL [facility] ALK PHOS 83 34 - 122 U/L [facility] ALTv 47 5 - 50 U/L [facility] AST(SGOT) 44 (H) 13 - 40 U/L [facility] eGFR Calculation 92.3 mL/min/1.73m2 [facility] (Non[facility] LABORATORY [place]) eGFR Calculation 111.9 mL/min/1.73m2 [facility] () [facility] Specimen Blood Narrative Performed At Association of Glomerular Filtration Rate (GFR) [facility] and Staging of Kidney Disease* [...] tests). Performing Organization Address City/State/Zipcode Phone Number [facility] CLIA: [id number] [place] [address] GLYCOSYLATED HEMOGLOBIN (A1C) (02/11/2020 11:00 AM SLAB LIFTING ENGINEER) Pathologist Sig nature HGB A1C 6.9 (H) 4.0 - 6.0 % [facility] Specimen Blood Narrative Performed At %A1C (NGSP) Interpretation (ADA) [facility] 4.8-5.6 Normal or (Non-Diabetic Ra nge) 5.7-6.4 Increased Risk (Pre-Diabet ic) >6.5 Diabetes Indicated Performing Organization Address City/State/Zipcode Phone Number [facility] CLIA: [id number] [place] [address] documented [...] Phone Address Type / Group BCBS OF [facility] [id number] 2016-[place] [phone] [address] PPO/POS [place] - OUT OF t 7 [id number] [place] [address] documented as of this encounter"
--- OUTSIDE RECORDS SUMMARY | 2020-05-06 07:06 | XMS REPORT | Summary of Care ---
:[address] [facility] Address [address] [place] [id number] Care Team Providers Name Role Phone Siver Primary Care Provider Reason for Referral (Routine) Status Reason Specialty Diagnoses / Procedures Referred By Rex kovacs Referred To Contact Closed Cardiology Diagnoses Essential hypertension Diastolic dysfunction Abnormal EKG Aortic dilatation LuiAbel wright Procedures ECHO ROUTINE W/DOPPLER COLOR Preferred Location: [facility] MD Nimesh [address] [place] [address] Phone: Reason for Visit Reason Comments Follow-up Annual Ekg Done today in Office Encounter Details Date Type Department Care Team Description 02/11/2020 Office Visit [facility] Lui, Sendil Essential hyp ertension (Primary Dx); Cardiology- Vin Beavers MD Abnormal EKG; [facility] [address] Aortic dilatation; Drive, [address] Metabolic syndrome; [place], [place] Class 3 severe obesity with body [...] with No / Unsure 02/11/2020 9:55 AM PERSONAL LINES SALES EXECUTIVE someone who was confirmed or suspected to have Coronavirus / COVID-19? documented as of this encounter Last Filed Vital Signs Vital Sign Reading Time Taken Comments Blood Pressure 145/96 02/11/2020 10:20 AM PERSONAL LINES SALES EXECUTIVE Pulse 67 02/11/2020 10:14 AM PERSONAL LINES SALES EXECUTIVE Temperature - - Respiratory Rate 19 02/11/2020 10:14 AM PERSONAL LINES SALES EXECUTIVE Oxygen Saturation 94% 02/11/2020 10:14 AM PERSONAL LINES SALES EXECUTIVE Inhaled Oxygen Concentration - - Weight 145.8 kg (321 lb 6.4 oz) 02/11/2020 10:14 AM PERSONAL LINES SALES EXECUTIVE Height 182.9 cm (6') 02/11/2020 10:14 AM PERSONAL LINES SALES EXECUTIVE Body Mass Index 43.59 02/11/2020 10:14 AM PERSONAL LINES SALES EXECUTIVE documented in this encounter Progress Notes Abel Lui MD - 02/11/2020 10:00 AM CST [facility] Cardiology Consult Note Patient: Zane Garcia Date [...] around 4.2 cm aneurysm. Since moving to [place] he has been off medications. He last few days he has been noticing that he is having dyspnea on exertion NYHA class II and rechecked his blood pressure has been consistently elevated. He has gained at least 15-20 pounds since the move from [place]. Previous Cardiac Studies: IMAGING - I personally [...] file Gets together: Not on file Attends [employer] service: Not on file Active member of [...] hypertension ECHO ROUTINE W/DOPPLER COLOR Preferred Location: [facility] EKG-12 LEAD ROUTINE COMP. METABOLIC PANEL (01796) LIPID PANEL (70120)(TOTAL CHOLESTEROL, TRIGLYCERIDES, HDL) N-TERMINAL PRO-BNP GLYCOSYLATED HEMOGLOBIN (A1C) losartan 50 mg tablet metoprolol succinate XL 25 mg 24 hr tablet 2. Abnormal EKG ECHO ROUTINE W/DOPPLER COLOR Preferred Location: [facility] EKG-12 LEAD ROUTINE COMP. METABOLIC PANEL (33594) LIPID PANEL (49766)(TOTAL CHOLESTEROL, TRIGLYCERIDES, HDL) N-TERMINAL PRO-BNP GLYCOSYLATED HEMOGLOBIN (A1C) losartan 50 mg tablet metoprolol succinate XL 25 mg 24 hr tablet 3. Aortic dilatation ECHO ROUTINE W/DOPPLER COLOR Preferred Location: [facility] EKG-12 LEAD ROUTINE COMP. METABOLIC PANEL (47924) LIPID PANEL (86694)(TOTAL CHOLESTEROL, TRIGLYCERIDES, HDL) N-TERMINAL PRO-BNP GLYCOSYLATED HEMOGLOBIN [...] Placed This Encounter Procedures COMP. METABOLIC PANEL (57646) LIPID PANEL (82622)(TOTAL CHOLESTEROL, TRIGLYCERIDES, HDL) N-TERMINAL PRO-BNP GLYCOSYLATED HEMOGLOBIN (A1C) ECHO ROUTINE W/DOPPLER COLOR Preferred Location: [facility] Requested Prescriptions Signed Prescriptions Disp Refills [...] in the answers given. We reviewed the [place] [employer] recommendations for reduction of overall [...] feel free to call our office at [phone]. I would be happy to be of further assistance for Zane Garcia wellbeing. David Lui MD Hot Die Picker, Division of Cardiology [facility] [employer]NAL [employer] SALES EXECUTIVE documented in this encounter Miscellaneous Notes Addendum Note - Oscar Mills - 02/11/2020 10:00 AM PERSONAL LINES SALES EXECUTIVE Addended by: OSCAR MILLS on: 02/12/2020 11:33 AM Modules accepted: Orders [employer] SAL[employer] EXECUTIVE documented in this encounter Plan of Treatment Date Type Specialty Care Team Description 02/11/2021 Office Visit Cardiology Abel Lui MD [address] [place] [address] [place] [address] [phone] Name Type Priority Associated Diagnoses Order [...] encounter Results N-TERMINAL PRO-BNP (02/11/2020 11:43 AM PERSONAL LINES SALES EXECUTIVE) Pathologist Sig nature NT-proBNP 59 <=125 pg/mL [facility] Specimen Blood Narrative Performed At Biotin has been reported to cause a negative [facility] bias, interpret results relative to patient's use of biotin. Performing Organization Address City/State[facility] Phone Number [facility] CLIA: [id number] [place] [address] LABORAT[address] LIPID PANEL (81436)(TOTAL CHOLESTEROL, TRIGLYCERIDES, HDL) (02/11/2020 11:43 AM PERSONAL LINES SALES EXECUTIVE) Pathologist Sig nature CHOL 166 120 - 200 mg/dL [facility] HDL 32 (L) >40 mg/dL [facility] HDLC RATIO 5.2 (H) <=5.0 [facility] TRIG 174 (H) 30 - 170 mg/dL [facility] LDL CHOL 99 <=160 mg/dL [facility] VLDL 35 5 - 60 mg/dL [facility] Specimen Blood Performing Organization Address City/State/Zipcode Phone Number [facility] CLIA: [id number] [place] [address] LABORATORY [address] COMP. METABOLIC PANEL (85751) (02/11/2020 11:43 AM PERSONAL LINES SALES EXECUTIVE) Pathologist Sig nature NA 136 135 - 145 [facility] mmol/L HOSPITAL LABORATORY K 4.5 3.5 - 5.0 [facility] mmol/L [facility] CL 102 98 - 108 mmol/L [facility] CO2 TOTAL 28 23 - 31 mmol/L [facility] AGAP 6 2 - 16 [facility] BUN 15 7 - 23 mg/dL [facility] GLUCOSE 130 (H) 70 - 110 mg/dL [facility] CREATININE 0.84 0.60 - 1.25 [facility] mg/dL [facility] TOTAL BILI 0.7 0.1 - 1.1 mg/dL [facility] CALCIUM 9.4 8.6 - 10.6 [facility] mg/dL [facility] T PROTEIN 6.5 6.3 - 8.2 g/dL [facility] ALBUMIN 4.1 3.5 - 5.0 g/dL [facility] ALK PHOS 83 34 - 122 U/L [facility] ALTv 47 5 - 50 U/L [facility] AST(SGOT) 44 (H) 13 - 40 U/L [facility] eGFR Calculation 92.3 mL/min/1.73m2 [facility] (Non[facility] LABORATORY [place]an) eGFR Calculation 111.9 mL/min/1.73m2 [facility] () [facility] Specimen Blood Narrative Performed At Association of Glomerular Filtration Rate (GFR) [facility] and Staging of Kidney Disease* + [...] tests). Performing Organization Address City/State/Zipcode Phone Number [facility] CLIA: [id number] [place] [address] GLYCOSYLATED HEMOGLOBIN (A1C) (02/11/2020 11:00 AM PERSONAL LINES SALES EXECUTIVE) Pathologist Sig nature HGB A1C 6.9 (H) 4.0 - 6.0 % [facility] Specimen Blood Narrative Performed At %A1C (NGSP) Interpretation (ADA) [facility] 4.8-5.6 Normal or (Non-Diabetic Ra nge) 5.7-6.4 Increased Risk (Pre-Diabet ic) >6.5 Diabetes Indicated Performing Organization Address City/[facility]/Zipcode Phone Number [facility] CLIA: [id number] [place] [address] documented in this [...] Effective Dates Phone Address Type / Group [facility] [id number] 2016-[facility] [phone] [address] PPO/POS [place] - OUT OF t 7 [id number] [place] [address] documented as of this encounter"
[2020-05-06 09:09] LABS: SARS-COV-2 RT PCR POSITIVE (NEGATIVE)
--- NOTE | 2020-05-06 09:21 | EDPHYS ---
Physician Documentation [facility] Name: Zane Garcia Age: 64 yrs Sex: Male : 1955 Arrival Date: 05/06/2020 Time: 07:06 Bed 20 Private MD: ED Physician Louis Grider HPI: 05/06 09:18 This 64 yrs old Male presents to ER via Ambulatory with complaints of Sore ma2 Throat, Fever. 09:18 The patient presents with sore throat. Onset: The symptoms/episode began/occurred ma2 gradually, 5 day(s) ago. Severity of symptoms: At their worst the symptoms were mild, in the emergency department the symptoms are unchanged. Associated signs and symptoms: Pertinent negatives cough, earache, flu-like symptoms. The patient has not experienced similar symptoms in the past. Historical: - Allergies: 07:39 No Known Allergies; iw - Home Meds: 07:39 losartan 50 mg oral tab 1 tab 2 times per day [Active]; metoprolol tartrate 25 mg Oral iw tab 1 tab 2 times per day [Active]; metformin 500 mg Oral tr24 1 tab once daily [Active]; - PMHx: 07:39 Arthritis; Hypertension; Diabetes - NIDDM; abnormal EKG; iw - PSHx: 07:39 cardiac cath X 2; shoulder; Knee surgery; iw - Immunization history:: Adult Immunizations not up to date. - Social history:: Smoking status: Patient/guardian denies using tobacco, but has a distant history of tobacco abuse. - Family history:: not pertinent. ROS: 09:18 Constitutional: Negative for fever, chills, and weight loss. ma2 09:18 All other systems are negative. Exam: 09:18 Constitutional: This is a well developed, well nourished patient who is awake, alert, ma2 and in no acute distress. Chest/axilla: Normal chest wall appearance and motion. Nontender with no deformity. No lesions are appreciated. Cardiovascular: Regular rate and rhythm with a normal S1 and S2. No gallops, murmurs, or rubs. Normal PMI, no JVD. No pulse deficits. Respiratory: Lungs have equal breath sounds bilaterally, clear to auscultation and percussion. No rales, rhonchi or wheezes noted. No increased work of breathing, no retractions or nasal flaring. Abdomen/GI: Soft, non-tender, with normal bowel sounds. No distension or tympany. No guarding or rebound. No evidence of tenderness throughout. Neuro: Awake and alert, GCS 15, oriented to person, place, time, and situation. Cranial nerves II-XII grossly intact. Motor strength 5/5 in all extremities. Sensory grossly intact. Cerebellar exam normal. Normal gait. Vital Signs: 07:34 BP 153 / 88; Pulse 102; Resp 20 S; Temp 99.5(O); Pulse Ox 93% ; Weight 145.15 kg; iw Height 6 ft. (182.88 cm); Pain 4/10; 07:34 Body Mass Index 43.40 (145.15 kg, 182.88 cm) iw MDM: 08:00 Patient medically screened. ma2 09:18 Differential diagnosis: gastroesophageal reflux disease, tonsillitis, upper respiratory ma2 infection. Data reviewed: vital signs, nurses notes. Counseling: I had a detailed discussion with the patient and/or guardian regarding: the historical points, exam findings, and any diagnostic results supporting the discharge/admit diagnosis, the presence of at least one elevated blood pressure reading (>120/80) during this emergency department visit, the need for outpatient follow up. Response to treatment: the patient's symptoms have markedly improved after treatment. 05/06 07:24 Order name: Flu ma2 05/06 09:09 Order name: COVID-19/FLU A+B; Complete Time: 09:18 EDMS Administered Medications: No medications were administered Disposition: 05/06/20 09:20 Discharged to Home. Impression: Coronavirus infection, unspecified. - Condition is Stable. - Discharge Instructions: COVID-19. - Prescriptions for Levaquin 500 mg Oral Tablet - take 1 tablet by ORAL route once daily for 7 days; 7 tablet. Diclofenac Sodium 75 mg Oral Tablet Sustained Release - take 1 tablet by ORAL route 2 times per day; 30 tablet. Medrol (Leonid) 4 mg Oral Tablets, Dose Pack - take 1 tablet by ORAL route as directed - follow package instructions; 1 packet. Albuterol Sulfate 90 mcg/actuation - inhale 1-2 puff by INHALATION route every 4-6 hours; 1 Inhaler. - Medication Reconciliation Form, Thank You Letter, Antibiotic Education, Prescription Opioid Use form. - Follow up: Private Physician; When: Tomorrow; Reason: Continuance of care. Signatures: Dispatcher [employer] [facility] Marisela Bullock RN Naty Shaikh RN RN ss Alzahri, Mohammad, MD MD ma2 Corrections: (The following items were deleted from the chart) 08:20 07:24 Influenza Screen (A ordered. [facility] EDMS 08:20 07:24 CORONAVIRUS+MR.LAB.BRZ ordered. [facility] EDMS 09:37 09:20 05/06/2020 09:20 Discharged to Home. Impression: Coronavirus infection, ss unspecified. Condition is Stable. Prescriptions for Levaquin 500 mg Oral Tablet - take 1 tablet by ORAL route once daily for 7 days; 7 tablet, Diclofenac Sodium 75 mg Oral Tablet Sustained Release - take 1 tablet by ORAL route 2 times per day; 30 tablet, Medrol (Leonid) 4 mg Oral Tablets, Dose Pack - take 1 tablet by ORAL route as directed - follow package instructions; 1 packet, Albuterol Sulfate 90 mcg/actuation - inhale 1-2 puff by INHALATION route every 4-6 hours; 1 Inhaler. and Forms are Medication Reconciliation Form, Thank You Letter, Antibiotic Education, Prescription Opioid Use. Follow up: Private Physician; When: Tomorrow; Reason: Continuance of care. ma2
--- NOTE | 2020-05-06 09:21 | ER ---
Nurse's Notes [facility] Name: Zane Garcia Age: 64 yrs Sex: Male : 1955 Arrival Date: 05/06/2020 Time: 07:06 Bed 20 Private MD: Diagnosis: Coronavirus infection, unspecified Presentation: 05/06 07:34 Chief complaint: Patient states: was exposed to COVID on Monday, was tested on Monday iw and was negative, stated having body aches, congestion, fever sine yesterday, temp was 101.4, drank lots of fluids, no vomiting, no cough but has hx of of pneumonia. Coronavirus screen: congestion, fever, Client presents with at least one sign or symptom that may indicate coronavirus-19. Standard/surgical mask placed on the client. Provider contacted for isolation considerations. The client reports previous COVID testing was negative. Ebola Screen: Patient negative for fever greater than or equal to 101.5 degrees Fahrenheit, and additional compatible Ebola Virus Disease symptoms Patient denies exposure to infectious person. Patient denies travel to an Ebola-affected area in the 21 days before illness onset. No symptoms or risks identified at this time. Initial Sepsis Screen: Does the patient meet any 2 criteria? No. Patient's initial sepsis screen is negative. Does the patient have a suspected source of infection? No. Patient's initial sepsis screen is negative. Risk Assessment: Do you want to hurt yourself or someone else? Patient reports no desire to harm self or others. 07:34 Method Of Arrival: Ambulatory iw 07:34 Acuity: LORY 3 iw Historical: - Allergies: 07:39 No Known Allergies; iw - Home Meds: 07:39 losartan 50 mg oral tab 1 tab 2 times per day [Active]; metoprolol tartrate 25 mg Oral iw tab 1 tab 2 times per day [Active]; metformin 500 mg Oral tr24 1 tab once daily [Active]; - PMHx: 07:39 Arthritis; Hypertension; Diabetes - NIDDM; abnormal EKG; iw - PSHx: 07:39 cardiac cath X 2; shoulder; Knee surgery; iw - Immunization history:: Adult Immunizations not up to date. - Social history:: Smoking status: Patient/guardian denies using tobacco, but has a distant history of tobacco abuse. - Family history:: not pertinent. Screenin:27 Abuse screen: Denies threats or abuse. Denies injuries from another. Nutritional ss screening: No deficits noted. Tuberculosis screening: Never had TB. Fall Risk None identified. Assessment: 08:03 General: Appears in no apparent distress. comfortable, Behavior is calm, cooperative. ss General: Reports chills for 12-24 hours, fever for 12-24 hours, feeling ill for 12-24 hours, fatigue for 12-24 hours. Pain: Complains of pain in generalized body aches Pain currently is 4 out of 10 on a pain scale. Quality of pain is described as aching. Neuro: Level of Consciousness is awake, alert, obeys commands, Oriented to person, place, time, situation, Denies blurred vision dizziness, headache. Cardiovascular: Capillary refill < 3 seconds is brisk in bilateral fingers. Respiratory: Airway is patent Respiratory effort is even, unlabored, Respiratory pattern is regular, symmetrical. GI: Abdomen is non-distended. EENT: Oral mucosa is moist. Throat is clear. Derm: Skin is pink, warm \T\ dry. normal. Musculoskeletal: Range of motion: intact in all extremities. 09:27 Reassessment: Patient appears in no apparent distress at this time. Patient and/or ss family updated on plan of care and expected duration. Pain level reassessed. Patient is alert, oriented x 3, equal unlabored respirations, skin warm/dry/pink. Vital Signs: 07:34 BP 153 / 88; Pulse 102; Resp 20 S; Temp 99.5(O); Pulse Ox 93% ; Weight 145.15 kg; iw Height 6 ft. (182.88 cm); Pain 4/10; 07:34 Body Mass Index 43.40 (145.15 kg, 182.88 cm) iw ED Course: 07:06 Patient arrived in ED. as 07:38 Triage completed. iw 07:40 Arm band placed on. iw 07:44 Marisela Bullock, RN is Primary Nurse. iw 08:00 Louis Grider MD is Attending Physician. ma2 08:01 Patient has correct armband on for positive identification. Bed in low position. Call ss light in reach. 08:06 Flu Sent. mh5 08:52 COVID swab sent to lab. Flu and/or RSV swab sent to lab. mh5 09:31 No provider procedures requiring assistance completed. Patient did not have IV access ss during this emergency room visit. Administered Medications: No medications were administered Outcome: : Discharge ordered by . evan : Discharged to home ambulatory. ss : Condition: good :31 Discharge instructions given to patient, Instructed on discharge instructions, follow up and referral plans. medication usage, Demonstrated understanding of instructions, follow-up care, medications, Prescriptions given X 4. 09:37 Patient left the ED. Signatures: Idalmis Koenig Irene, RN RN Naty Ruggiero RN RN Laura Koenig [facility] Louis Grider MD MD ma2 Corrections: (The following items were deleted from the chart) 08:20 08:06 Influenza Screen (A drawn and sent. [facility] EDMS 08:20 08:06 CORONAVIRUS+MR.LAB.BRZ drawn and sent. [facility] EDAL
[2020-05-06 09:42] VITALS: BP 153/88; TEMP 99.5; O2SAT 93
== END 2020-05-06 09:37 | disposition home or self-care (01) ==
LOC: ER 07:02
DX: U07.1 COVID-19 (principal); I10 Essential (primary) hypertension; E11.9 Type 2 diabetes mellitus without complications
CPT/HCPCS: 0240U; 99283